=== PATIENT | female | born 1940 | race Caucasian/White ===

== ENCOUNTER 2016-07-05 09:10 | Inpatient (IN) | payer OTHER ==
[~2016-07-05] VITALS: Ht 165.1 cm; Wt 69.0 kg
[~2016-07-05 09:10] MED LIST: ALD25 PO; APAP/HYDROCODON1 T13 PO; ASPIR-LOW81 M1 PO; COL0.6 PO; COL250 PO; D3 VITAMIN400 IU/ML PO; EXELON PATCH TD; FER300 PO; L40 PO; NAMENDA XR7 MG PO; PHENOBARBITAL15 MG PO; SYN25 PO; TYLENOL325 MG PO; VITC PO; ZYL100 PO; [UNRECOGNIZED DRUG - CODE] OU
--- NOTE | 2016-07-05 09:31 | NUR ---
PT IS A 75 YEAR OLD FEMALE, FROM [facility]IA [facility], WITH C/O ALOC. PER MEDIC, PT LAST SEEN AT 0645 AND WAS DESCRIBED ACTING LETHARGIC MORE THAN USUAL. PT HAS HX OF ADVANCED STAGE ALZHEIMERS, AND IS BASELINE SCREAMING AND ONLY REACTIVE TO NAME, NORMALLY CONFUSED TO DATE, TIME, AND PURPOSE. SKIN IS WARM, DRY AND INTACT. PER MEDIC, STAFF AT [facility] MOVED PT CLOSER TO NURSES STATION TO MONITOR PT, AND FINALLY CALLED 911 DUE TO PT APPEARING WORSE. PT NON REACTIVE TO VERBAL STIMULUS OR PAINFUL STIMULUS. PT PUPIL REACTION IS SLUGGISH AT 2MM BILATERALLY. PT BREATHING IS SHALLOW.
[2016-07-05] MEDS ORDERED: LASIX40 MG PO (09:44)
[2016-07-05] MEDS ORDERED: ALDACTONE25 MG PO (09:44)
[2016-07-05] MEDS ORDERED: COLCHICINE0.6 M1 PO (09:45)
[2016-07-05] MEDS ORDERED: MASON NATURAL1000 IU PO (09:45)
[2016-07-05] MEDS ORDERED: ALLOPURINOL100 MG PO (09:45)
[2016-07-05] MEDS ORDERED: ASPIR 8181 MG PO (09:46)
[2016-07-05] MEDS ORDERED: SYNTHROID25 MCG PO (09:46)
[2016-07-05] MEDS ORDERED: VITC PO (09:46)
[2016-07-05] MEDS ORDERED: SILACE60 MG/15 M PO (09:46)
[2016-07-05] MEDS ORDERED: EXELON4.6 MG/21 TOP (09:47)
[2016-07-05] MEDS ORDERED: BETIMOL5 M1 OD (09:48)
[2016-07-05] MEDS ORDERED: NAMENDA10 M2 PO (09:48)
[2016-07-05] MEDS ORDERED: TRAVATAN Z5 ML OU (09:48)
[2016-07-05] MEDS ORDERED: TYLENOL325 M1 PO (09:49)
[2016-07-05] MEDS ORDERED: LORAZEPAM0.5 MG PO (09:49)
[2016-07-05] MEDS ORDERED: LACTULOSE10 GM/152 PO (09:50)
[2016-07-05] MEDS ORDERED: NORCO1 TA1 PO (09:51)
[2016-07-05] MEDS ORDERED: VOLTAREN100 GM TP (09:51)
[2016-07-05] MEDS ORDERED: MOM PO (09:52)
--- NOTE | 2016-07-05 10:09 | NUR ---
CHEST XRAY AT BED SIDE
--- NOTE | 2016-07-05 10:24 | NUR ---
ADMINISTERED NARCAN 0.4MG/ML IVP IN RIGHT HAND. NO RESPONSE.
--- NOTE | 2016-07-05 10:25 | NUR ---
PT TAKEN TO CT VIA RJAMES.
[2016-07-05 10:34] LABS: UA SPECIFIC GRAVITY 1.025 (1.005-1.035); microscopic required? YES; urine erythrocyte TRACE (NEGATIVE)
--- NOTE | 2016-07-05 10:39 | NUR ---
PT BACK FORM CT VIA GURNEY, WITHOUT INCIDENCE.
[2016-07-05 10:43] LABS: AMPHETAMINE QUAL UR NONE DETECTED (NEG <=1000)
[2016-07-05 10:43] LABS: ALBUMIN 3.9 g/dL (3.4-5.0); ALKALINE PHOSPHATASE 138 U/L (46-116); ALT/SGPT 60 U/L (14-59); AST/SGOT 46 U/L (15-37); CALCIUM 9.3 mg/dL (8.5-10.1); CARBON DIOXIDE 25.4 mmol/L (21-32); CHLORIDE SERUM 103 mmol/L (98-107); CREATININE SERUM 1.2 mg/dL (0.6-1.0); GLUCOSE SERUM 141 mg/dL (74-106); SODIUM SERUM 139 mmol/L (136-145); TOTAL PROTEIN, SERUM 6.7 g/dL (6.4-8.2)
[2016-07-05 10:44] LABS: PLATELET COUNT 241 x10^3mcL (130-400); RED CELL DISTRIBUTION WIDTH 13.8 % (11.5-14.5)
[2016-07-05 10:56] LABS: POTASSIUM SERUM 2.9 mmol/L (3.5-5.1)
[2016-07-05 11:33] LABS: BAND NEUTROPHIL 10 % (0-10); BASOPHIL 0 % (0-2); MONOCYTE 3 % (0-7); SEGMENTED NEUTROPHILS 85 % (37-75)
[2016-07-05 11:34] LABS: PLATELET MORPHOLOGY PLATELETS NORMAL; rbc morphology (normal/abnorm) NORMAL (NORMAL)
--- NOTE | 2016-07-05 11:57 | NUR ---
REPORT CALLED AMOS MATTSON, SHE WILL ASSUME CARE PRIMARY RN PSOT TRANSFER.
[2016-07-05 12:08] LABS: MAGNESIUM 2.1 mg/dL (1.8-2.4); PHOSPHOROUS 3.2 mg/dL (2.5-4.9)
[2016-07-05 12:10] LABS: CHOLESTEROL/HDL RATIO 5.8; T3 TOTAL 0.72 ng/mL
--- NOTE | 2016-07-05 12:10 | NUR ---
RECEIVED PT FROM ER. PT IS NOT RESPONDING BUT EYES ARE OPEN AND BREATHING. 100% IN NON REBREATHER MASK. FAMILY AT BEDSIDE. PT IS DNR. CAME AND SAW THE PT AND SPOKE WITH FAMILY. WILL CONTINUE TO MONITOR.
[2016-07-05 12:18] LABS: FREE T4 1.42 ng/dL (0.76-1.46)
[2016-07-05 13:23] VITALS: BP 134/83
--- NOTE | 2016-07-05 13:40 | NUR ---
REC'D RESTING IN BED, FAMILY AT THE BEDSIDE. PT IS AWAKE, EYES OPEN, DOES NOT FOLLOW COMMANDS. NOTED F/C DRAINING TO GRAVITY. NOTED IV ON RH AND RFA WNL. REC'D WITH POTASSIUM INFUSING. PT TOLERATING WELL. NO DISTRESS NOTED. NO FACIAL GRIMACING OR MOANING NOTED. PT IS ON AIR MATTRESS. PT IS ON FACE MASK AT 10L, NO SOB NOTED. PLACED CALL LIGHT WITHIN REACH, PT UNABLE TO FOLLOW DIRECTIONS. PROVIDED REPORT TO TWILA TRINIDAD FOR CONTINUITY OF CARE.
--- NOTE | 2016-07-05 17:40 | NUR ---
RT SAID PT IS SATTING 100% IN NON REBREATHER AND ALSO IN RA AND SHE DOESNOT HAVE ANY SECRETIONS FOR SUCTION. RT PUT PT IN O2 3L VIA N/C AND SATTING 99%. WILL MONITOR.
[2016-07-05 18:06] VITALS: BP 123/79
[2016-07-05 18:15] VITALS: BP 123/79
--- NOTE | 2016-07-05 19:08 | NUR ---
PT IS STILL NON RESPONSIVE BUT STABLE. NO SIGNS OF PAIN OR DISCOMFORT. PT IS ON AIR MATTRESS. GAVE REPORT TO NEXT SHIFT NURSE.
--- NOTE | 2016-07-05 19:40 | NUR ---
RECEIVED PT IN BED AND APPEARS TO BE SLEEPING. PT IS NONRESPONSIVE TO VERBAL AND TACTILE STIMULI. LUNG SOUNDS W/ FINE CRACKLES. ON O2 AT 3 L VIA N/C. RESPIRATION IS EVEN AND NON-LABORED. BOWEL SOUNDS HYPOACTIVE. W/ RIDDLE CATH DRAINING JOSE ANTONIO URINE. IVF NS INFUSING VIA RTFA. W/ HL TO RT HAND. CALL LIGHTW/IN REACH. BED ALARM ACTIVATED.
[2016-07-05 20:42] VITALS: BP 118/71
[2016-07-05 21:11] LABS: CALCIUM 8.7 mg/dL (8.5-10.1); CARBON DIOXIDE 18.5 mmol/L (21-32); CHLORIDE SERUM 105 mmol/L (98-107); CREATININE SERUM 1.1 mg/dL (0.6-1.0); GLUCOSE SERUM 156 mg/dL (74-106); SODIUM SERUM 138 mmol/L (136-145)
[2016-07-05 21:13] LABS: POTASSIUM SERUM 5.8 mmol/L (3.5-5.1)
--- NOTE | 2016-07-05 21:41 | NUR ---
INFORMED DR. WEN REGARDING K=5.8 TROP=2.054. ALSO INFORMED THAT PT IS NON-RESPONSIVE AND UNABLE TO TAKE PO MEDS.
--- NOTE | 2016-07-05 22:32 | NUR ---
PT STILL UNRESPONSIVE. UNABLE TO ADMINISTER KAYEXALATE PO AT THIS TIME. DR. WEN AWARE.
--- NOTE | 2016-07-06 | NUR ---
PT REMAINS UNRESPONSIVE. BREATHING UNLABORED.
[2016-07-06 03:32] LABS: ALBUMIN 3.4 g/dL (3.4-5.0); CALCIUM 8.8 mg/dL (8.5-10.1); CARBON DIOXIDE 20.3 mmol/L (21-32); CHLORIDE SERUM 103 mmol/L (98-107); CREATININE SERUM 1.4 mg/dL (0.6-1.0); GLUCOSE SERUM 172 mg/dL (74-106); MAGNESIUM 2.2 mg/dL (1.8-2.4); PHOSPHOROUS 3.6 mg/dL (2.5-4.9); SODIUM SERUM 136 mmol/L (136-145)
[2016-07-06 03:55] LABS: BASOPHIL % 0.1 % (0-2); PLATELET COUNT 227 x10^3mcL (130-400); RED CELL DISTRIBUTION WIDTH 13.4 % (11.5-14.5)
--- NOTE | 2016-07-06 04:24 | NUR ---
INFORMED DR. WEN REGARDING TROP=2.780.
--- NOTE | 2016-07-06 05:07 | NUR ---
PT REMAINS UNRESPONSIVE. ON O2 AT 3L VIA N/C. BREATHING IS EVEN AND UNLABORED. PT REPOSITIONED PER PROTOCOL. SHE HAD NO BM THIS SHIFT. RIDDLE CATH INTACT AND PATEMT. IVF NS AT 90 CC/HR INFUSING VIA RTFA.
[2016-07-06 06:08] VITALS: BP 125/88
--- NOTE | 2016-07-06 07:06 | NUR ---
TELE. MONITOR DISCONTINUED ORDERED.
--- NOTE | 2016-07-06 08:00 | NUR ---
SON AT BEDSIDE AND PATIENT IS VERY LETHAGIC AND UNABLE TO AROUSE TO GIVE MEDIADTIONS. PATIENT HAS BEEN WITH RALES YESTERDAY THAT WERE MORE COARSE AND NOW FINE RALES HEARD. SHE IS NO LONGER ON THE NON REBREATHER AND TOLERATED THE NASAL CANNULA. PATIENT HAS HYPOACTIVE BOWEL SOUNDS AND HAS NOT BEEN EATTING OR TAKING HER MEDICATION. RIDDLE TO GRAVITY AND URINE IS MEDIUM DARK JOSE ANTONIO. PATIENT HAS NO INDICATION OF PAIN AT THIS TIME. HX OF HTN, ALZHEIMER, DEMENTIA , PERIPHERAL EDEMA AND GLAUCOME HYPOTHYROISIM. GOUT, MACULAR DEGERNATUION AND RIGHT HIS SURGEY. PATIENTH HAS BEEN RECEIING ROCEPHIN AND SOLUMEDREOL AND BOTH HAS NO SIGNS OF RACTOIN. PATIENT HAS BEEN ON RT PROTOCAL AND TOLERATE WELL.
--- NOTE | 2016-07-06 08:30 | NUR ---
SEEN BY THE INTERNS AND DR REYEZ AND PLAN OF CARE DISCUSSED. PATIENT IS FOR A NUTRITIONAL CONSULTATION AND SONE AT BEDSIDE AND SUPPORTIVE WITH CARE.
[2016-07-06 10:43] VITALS: BP 142/85
--- NOTE | 2016-07-06 13:03 | NUR ---
BLOOD GAS DRAWNA ND RESULTS PENDING AT THIS TIME. FAMILY AT BEDSIDE AND SUPPORTIVE WITH CARE.
--- NOTE | 2016-07-06 15:41 | NUR ---
FAMILY AT BEDSIDE. PATIENT IS MOVING HER FEET AND OCCASIONALLY SHE IS MAKING A GROAN OR SIGH HERE AND THERE. SHE DOES NOT APPEAR IN ANY ACUTE DISTRESS EITHER RESPIRATORY CHILDERS OR PAIN. WILL CONTINUE TO MONITOR INDICATED.
--- NOTE | 2016-07-06 17:17 | NUR ---
Initial Nutrition Assessment-consult: comatose Dx: ALOC PMHx: Alzheimers dementia, HTN, peripheral edema, glaucoma, hypothyroid, gout PSHx: macular degeneration, right hip surgery Labs: BG 172, BUN 25, Cr 1.4, WBC 15.4, HCT 47, Meds: Lipitor, solu-medrol, Colace, Diet: none PO Intake: last meal was dinner on 07/04 INSPECTOR TECHNICIAN Ht: 65in Wt: 152# BMI: 25.3 (overweight) IBW: 125# %IBW: 122% UBW: unknown Age: 75yo F Food Allergies: none, intolerant to large amounts of lactose Skin: left facial lesion Idris Edema: chronic peripheral edema GI: Last BM unknown Pt comatose upon visit, qscdoifv-re-ntv at bedside was able to provide information. Lchakffz-vh-fbi reports noticeable weight loss in the last few weeks, total pounds lost is unknown. Patient is bed bound and requires assistance with meals but was refusing meals INSPECTOR TECHNICIAN. Per Liienodu-yl-qun, patient would close her mouth and shake her head "no" when they would attempt to feed. On Sunday, INSPECTOR TECHNICIAN, the mutugghv-ek-jyv was able to feed patient 1 cheese enchilada and a half cup of rice, but has not eaten since. Pt takes a vitamin D supplement at home. Pt does not qualify for education due to comatose state and ALOC Alzheimer's dementia. Estimated Nutritional Needs Based on actual body weight 69.1 kg Energy: 5525-6329 kcal/d (25-30 kcal/kg) Protein: 55-70 g/d (0.8-1 g/kg) Fluid: 1382 ml/d (20 ml/kg) or per doctor Nutrition Diagnosis Inadequate protein-energy intake related to patient unable to ingest PO diet as evidenced by patient is comatose and no PO intake x 3 days. Intervention 1. If diet does not advance by day 4 of admission, consider initiating NG TF Nutren 2.0 at 15mL/hour and advance as tolerated by 10mL q 4 hours to goal rate of 40mL/hour. Provides 100% of estimated caloric needs and 117% of estimated protein needs) Monitor/Evaluate Goal: NPO < 5 days Monitor: tolerance to TF, Labs, GI function F/U in 2-3 days as HIGH risk
--- NOTE | 2016-07-06 17:18 | NUR ---
Nutrition Diagnosis: Inadequate protein-energy intake related to patient unable to ingest PO diet as evidenced by patient is comatose and no PO intake x 3 days. Recommendation: If diet does not advance by day 4 of admission, consider initiating NG TF Nutren 2.0 at 15mL/hour and advance as tolerated by 10mL q 4 hours to goal rate of 40mL/hour. Provides 100% of estimated caloric needs and 117% of estimated protein needs)
--- NOTE | 2016-07-06 17:50 | NUR ---
PATIENT STILL LETHARGIC AND ONLY RESPONSIVE TO TACTILE OR PAINFUL STIMULI. PATIENT HAS BEEN BREATHING REGULAR AND UNLABORED AT THIS TIME. NO ADVERSE REACTION FROM THE ANTIBOITIC NOTED.
[2016-07-06 17:55] VITALS: BP 126/90
--- NOTE | 2016-07-06 19:25 | NUR ---
RECEIVED PT IN BED UNRESPONSIVE TO VERBAL STIMULI. PT W/ SOME MOVEMENTS TO BUE AND BLE WHEN TOUCHED. LUNG SOUNDS DIMINISHED. RESP. EVEN AND UNLABORED. PT BREATHING BETTER W/ HOB ELEVATED. ON O2 AT 3L VIA N/C. BOWEL SOUNDS HYPOACTIVE. W/ RIDDLE CATH DRAINING JOSE ANTONIO URINE. DR. ENGLISH IN TO CHECK ON PT AT THIS TIME. PT W IVF OF NS AT 90 CC/GR VIA RTFA. W/ HL TO RT HAND. CALL LIGHT W/IN REACH. BED IN LOWEST POSITION.
[2016-07-06 21:51] VITALS: BP 132/73
--- NOTE | 2016-07-06 23:05 | NUR ---
PT GIVEN SPONGE BATH. KEPT HER WARM AND COMFORTABLE.PT REMAINS UNRESPONSIVE.
--- NOTE | 2016-07-07 04:45 | NUR ---
PT'S BREATHING SLIGHTLY LABORED. ON O2 AT 3L N/C.
--- NOTE | 2016-07-07 05:00 | NUR ---
PT APPEARS CALM AND BREATHING EVEN AND NON-LABORED AT THIS TIME. DR. WEN IN TO CHECK ON PT.
--- NOTE | 2016-07-07 05:15 | NUR ---
PT REMAINS UNRESPONSIVE. W/ MOVEMENTS TO BUE AND BLE AT TIMES ON TACTILE AND PAINFUL STIMULI. PT SATTING 96 % ON O2 AT 3L VIA N/C. NO BM NOTED. RIDDLE CATH INTACT AND W/ 700 CC OUTPUT THIS SHIFT (HAD LASIX IV). IVF NS AT 80 CC/HR INFUSING WELL VIA RTFA.
[2016-07-07 06:27] VITALS: BP 136/94
[2016-07-07 06:35] LABS: PLATELET COUNT 198 x10^3mcL (130-400); RED CELL DISTRIBUTION WIDTH 13.9 % (11.5-14.5)
[2016-07-07 06:56] LABS: CALCIUM 8.5 mg/dL (8.5-10.1); CHLORIDE SERUM 111 mmol/L (98-107); CREATININE SERUM 1.4 mg/dL (0.6-1.0); GLUCOSE SERUM 198 mg/dL (74-106); SODIUM SERUM 144 mmol/L (136-145)
[2016-07-07 07:03] LABS: ALBUMIN 2.9 g/dL (3.4-5.0)
--- NOTE | 2016-07-07 07:20 | NUR ---
RECEIVED Pt. EYES CLOSED RESPIRATIONS EVEN AND UNLABORED AT THIS TIME O2 3L/MIN NC. Pt. NONRESPONSIVE TO VERBAL AND TACTILE STIMULI. NO FACIAL GRIMACING/MOANING NOTED. IVF D5NS RUNNING TO IV AT RFA PATENT AND INTACT. IV RIGHT HAND SALINE LOCKED. RIDDLE CATHETER IN PLACE. CLEAR, YELLOW URINE NOTED. AIR MATTRESS IN PLACE. SWELLING NOTED BLE. BED LOW/LOCKED. CALL LIGHT IN REACH.
[2016-07-07 09:12] VITALS: BP 141/76
[2016-07-07 09:50] VITALS: BP 95/44
--- NOTE | 2016-07-07 10:00 | NUR ---
SPOKE WITH DR. ENGLISH VERIFYING NG TUBE PLACEMENT PER MD HOLD NG TUBE INSERTION AT THIS TIME.
--- NOTE | 2016-07-07 10:25 | NUR ---
Pt. REMAINS UNRESPONSIVE. RESPIRATIONS EVEN AND UNLABORED O2 3L/MIN NC. IV AT RFA SALINE LOCKED. NO DISTRESS AT THIS TIME. Pt. LEFT FOR CT.
[2016-07-07 10:29] LABS: BAND NEUTROPHIL 3 % (0-10); BASOPHIL 0 % (0-2); MONOCYTE 4 % (0-7); SEGMENTED NEUTROPHILS 89 % (37-75)
--- NOTE | 2016-07-07 11:00 | NUR ---
Pt. RETURNED FROM CT SCAN, Pt. REMAINS UNRESPONSIVE, EPISODES OF LABORED BREATHING NOTED. Pt. REPOSITIONED AND RESPIRATIONS EVEN AND UNLABORED O2 3L/MIN NC. HOB ELEVATED. RESUMED IVF D5NS TO IV AT LEFT HAND PATENT AND INTACT. DR. ENGLISH AT BEDSIDE AWARE OF MAP AT 63. WILL CONTINUE TO MONITOR. CALL LIGHT IN REACH. SON AT BEDSIDE.
--- NOTE | 2016-07-07 16:19 | NUR ---
Follow-up Nutrition Assessment Dx: Metabolic Encephalopathy 2/2 Acute Alzheimer's dementia exacerbation w/ underlying UTI PMHx: Alzheimers dementia, HTN, peripheral edema, glaucoma, hypothyroid, gout Labs: BG 198H, BUN 29H, Cr 1.4H, Alb 2.9L, TROP 2.780H, WBC 17.4H Meds: Lipitor, zofran, morphine, lactinex, Colace, D50, heparin, aldactone, lasix, synthroid, synthroid, milk of magnesia, lactulose, vitamin C 500mg BID, vitamin D Current TF Order: Nutren 2.0 via NGT at goal rate of 40ml/pk=[id number], 81g protein, 664ml free H2O. Free H2O Flush: 100ml q4hr (07/07) TF Intakes: none recorded (07/07) Residuals: none recorded (07/07) I/O's: 2090/1100 (+990ml) Wt: 152lbs, 69kg (07/05)- no new wt. BMI: 25.3 (overweight) Skin: intact- no pressure injuries noted by RN. Idris: 10 Edema: +2 to BLE GI: hypoactive bowel sounds, abd soft/round. Last BM: unknown (07/05) Problem with: N: None. V: None. D: none. C: None. As per doctor's progress note 07/06- Patient remains comatose, however has improved since the past 24 hours to a GCS 8 (tactile stimulus, nonverbal, localizes to pain). Patient will continued to be monitored over night for any acute changes and reevaluated in the morning. Meanwhile, patient's family will contact [facility] for a list of medications given to patient on the day of onset of symptoms . Pt admitted w/ Metabolic Encephalopathy 2/2 Acute Alzheimer's dementia exacerbation w/ underlying UTI. Pt seen at bedside w/ family x2 present, pt was still in a comatose state in a slouched over position, did not hear bowel sounds or laboured breathing, no NGT inserted, no TF hanging, spoke to family, reports the doctor is going to think about placing the NGT for TF, family was a bit aprehensive in regards to the NGT being placed for TF. The RD spoke to Dr. Mckeon in regards to TF initiation, he asked the RD if the addition of nutrition will help the pt' s body fight off the infection to which the RD stated yes; however, the pt must be monitored closely for signs of aspiration and ensure the pt's HOB is elevated >45 degrees, Dr. Mckeon agreed and will plan for NGT to be placed later today for TF initiation. Estimated Nutritional Needs Based on CBW 152 lb, 69kg Energy: 4253-2191 kcal/day (25-30 kcal/kg for Geriatric Maintenance) Protein: 69-83 g/day (1-1.2 g/kg for Geriatric Maintenance) Fluid: 6739-3369 ml/day (25-30 ml/kg for Geriatric Maintenance) or per MD Nutrition Diagnosis 1. Inadequate protein-energy intake related to patient unable to ingest PO diet as evidenced by patient is comatose and no PO intake x 3 days-*Continues Intervention 1. Change TF to Isosource 1.5 via medically feasible route and initiate at 30ml/hr and advance by 10ml q4hr to goal rate of 50ml/hr to provide 1800kcals, 82g protein, 917ml free H2O. Free H2O Flush of 135ml q4hr (total free H2O 1727ml) or per MD. 2. Ensure the HOB is elevated > 45 degrees to prevent aspiration 3. Adjust Insulin and BM regimen PRN (Note Bmg/dL) Monitor/Evaluate Previous Goal: NPO < 5 days- Met Goal: TF meeting >/=50% of needs w/ tolerance Monitor: TF intakes/tolerance, labs, skin integrity, GI function, wt F/U in 2-3 days as HIGH risk (07/09-07/10)
--- NOTE | 2016-07-07 16:32 | NUR ---
1. Change TF to Isosource 1.5 via medically feasible route and initiate at 30ml/hr and advance by 10ml q4hr to goal rate of 50ml/hr to provide 1800kcals, 82g protein, 917ml free H2O. Free H2O Flush of 135ml q4hr (total free H2O 1727ml) or per MD. 2. Ensure the HOB is elevated > 45 degrees to prevent aspiration 3. Adjust Insulin and BM regimen PRN (Note Bmg/dL)
--- NOTE | 2016-07-07 16:34 | NUR ---
PER R.T. PT IN POSITION ON UPRIGHT AND O2SAT AT 100% ON 3L/NC BUT HAD NOTED ABDL/LABORED BREATHING. CALLED AND SPOKE TO (RESIDENT ASSIGNED TO THIS PT)MADE AWARE OF ABOVE. WENT TO SEE PT AND FAMILY WERE ALL AT THE BEDSIDE. RAMONA MATTSON ASSIGNED TO THIS PT AT THE BEDSIDE. WILL CONT TO MONITOR.
[2016-07-07 16:48] VITALS: BP 144/83
--- NOTE | 2016-07-07 18:54 | NUR ---
Pt. REMAINS UNRESPONSIVE, EPISODES OF LABORED BREATHING NOTED RELIEVED BY POSITIONING. HOB KEPT ELEVATED TO FACILITATE BREATHING. RESPIRATIONS EVEN AND UNLABORED AT THIS TIME. NO FACIAL GRIMACING/MOANING/SIGNS OF PAIN OR DISCOMFORT NOTED. NO DISTRESS AT THIS TIME. D5NS RUNNING TO IV AT RIGHT HAND AND IS PATENT AND INTACT. KEPT CLEAN AND DRY. RIDDLE CATHETER IN PLACE DRAINING YELLOW URINE NOTED. AIR MATTRESS IN PLACE. BED LOW/LOCKED. CALL LIGHT IN REACH, FAMILY AT BEDSIDE.
--- NOTE | 2016-07-07 19:10 | NUR ---
DR. ENGLISH NOTIFIED URINE OUTPUT FROM RIDDLE CATHETER 150 ML DURING SHIFT.
--- NOTE | 2016-07-07 19:45 | NUR ---
RECEIVED PT FROM AM NURSE. PT IS UNRESPONSIVE. PT HOB IS ELEVATED. NO SIGNIFICANT CHANGES. PULSES ARE EVEN AND PALPABLE. BREATH SOUNDS ARE EVEN AND UNLABORED. LUNG SOUNDS ARE CLEAR. ABD IS SOFT AND ROUND. SCD ARE ON. IV INFUSING WELL. BED IN LOWEST POSITION. CALL LIGHT WITHIN REACH. WILL CONTINUE TO MONITOR.
[2016-07-07 21:57] VITALS: BP 138/88
--- NOTE | 2016-07-07 21:59 | NUR ---
DR. WEN MADE AWARE PT ON CPAP ALREADY AT THIS TIME.WILL INSERT NGT ORDERED EARLIER IN AM AND AGREEABLE.
--- NOTE | 2016-07-08 05:20 | NUR ---
INSERTION OF MONTSERRATIAN 14 GAUGE NGTUBE TO RIGHT NARES AND TOLERATED WELL. O2 SAT 96-98% WITH O2 AT 4L. GOOD ORAL CARE PROVIDED. WILL ORDER KUB.
[2016-07-08 06:10] LABS: BASOPHIL % 0.2 % (0-2); PLATELET COUNT 168 x10^3mcL (130-400); RED CELL DISTRIBUTION WIDTH 13.9 % (11.5-14.5)
[2016-07-08 06:18] VITALS: BP 150/82
[2016-07-08 06:46] LABS: CALCIUM 8.5 mg/dL (8.5-10.1); CARBON DIOXIDE 21.1 mmol/L (21-32); CHLORIDE SERUM 117 mmol/L (98-107); CREATININE SERUM 1.1 mg/dL (0.6-1.0); GLUCOSE SERUM 133 mg/dL (74-106); POTASSIUM SERUM 4.2 mmol/L (3.5-5.1); SODIUM SERUM 151 mmol/L (136-145)
--- NOTE | 2016-07-08 06:47 | NUR ---
MADE ROUNDS. PT IS OCCASIONALLY OPENING HER EYES AND RESPONDING TO TACTIC STIMULI. HOB IS ELEVATED. UNABLE TO ASSESS PAIN. IV INFUSING WELL. BED IN LOWEST POSITION. WILL CONTINUE TO MONITOR AND ENDORSE ALL CARE TO ONCOMING NURSE.
--- NOTE | 2016-07-08 08:00 | NUR ---
PT IS NON RESPONISIVE TO VERBAL STIMULI, DOES NOT FOLLOW COMMANDS AND, FLEXES TO PAINFUL STIMULI, GCS OF 4. NGT TO RIGHT NARE. MEDSURG PT. PULSES WEAK TO ALL EXTREMITIES, EDEMA AND WCCHYMOSIS TO BUE AND BLE. SCDS IN PLACE. HOB ELEVATED PT ON 4L O2 VIA NC. BOWEL SOUNDS HYPO ACTIVE. RIDDLE IN PLACE. OT ON AIR MATRESS. NO NONVERBAL INDICATORS OF PAIN AT THIS TIMES. IV THE THE RFA AND RIGHT HAND. CALL LIGHT IN REACH BED IN LOW POSITION.
--- NOTE | 2016-07-08 09:12 | NUR ---
PT BREATHING LABORED RR 22, ELEVATED HOB AND READJUSTED NC WILL REASSESS.
--- NOTE | 2016-07-08 10:01 | NUR ---
RR DECREASED TO 18, PT BREATHING LESS LABORED WILL CONTINUE TO MONITOR.
[2016-07-08 10:02] VITALS: BP 145/87
--- NOTE | 2016-07-08 11:21 | NUR ---
DR WALL IN TO SEE PT AND FAMILY, UPDATED FAMILY ON POC.
--- NOTE | 2016-07-08 12:00 | NUR ---
DR BURNS IN TO SEE PT AND FAMILY DISCUSSED TX OPTIONS FRO PT, DICUSSED PALLIATIVE CARE.
--- NOTE | 2016-07-08 12:30 | NUR ---
DR WALL IN TO SEE PT AND FAMILY AND DISCUSS INTO FURTHER DETAIL TX OPTIONS FOR PT, FAMILY STATED THAT IT WAS THE PTS WISHES TO HAVE COMFORT MEASURES ONLY, DR WALL ASKED HOW THE FAMILY FELT ABOUT A MORPHINE DRIP AND THE FAMILY STATED THAT'S WHAT THE PT WOULD WANT.
[2016-07-08 14:35] VITALS: BP 135/85
--- NOTE | 2016-07-08 14:45 | NUR ---
PATIENT PLACED ON TELE, MONITOR NUMBER 8, SR AT THIS TIME WILL CONTINUE TO MONITOR.
--- NOTE | 2016-07-08 15:09 | NUR ---
MORPHINE DRIP INITIATED, INFUSION RUNNING AT 2MG/HR, WILL CONTINUE TO MONITOR CLOSELY.
--- NOTE | 2016-07-08 16:05 | NUR ---
MORPHINE INFUSION INCREASED BY 2MG/HR DUR TO RR OF 26, NOW INFUSING AT 4MG/HR, WILL CONTINUE TO MONITOR BRANDON. HR 89 VS STABLE.
[2016-07-08 18:08] VITALS: BP 80/52
--- NOTE | 2016-07-08 18:10 | NUR ---
ORDERS FROM DR POLLACK RECIEVED, NGT DC'D TIP INTACT, SCDS DC'D, AND O2 DECREASED TO 2L VIA NC. PTS RR 24 MORPHINE DRIP INREASED BY 2MG/HR NOW RUNNING AT 6MG/HR, WILL CONTINUE TO MONITOR BRANDON.
--- NOTE | 2016-07-08 18:35 | NUR ---
PT RESTING IN BED RESPIRATIONS LABORED BUT WITHIN PARAMETERS, WILL CONTINUE TO MONITOR. FAMILY AT BEDSIDE.
--- NOTE | 2016-07-08 19:15 | NUR ---
RECEIVED PT FROM AM NURSE. PT IS UNRESPONSIVE AND DOES NOT RESPOND TO VERBAL STIMULI. PT IS LAYING IN BED WITH THE HOB ELEVATED. DOES NOT RESPOND TO FLEXES OF PAINFUL STIMULI. TELE # 8 SR 86 DEPRESS T WAVE. EDEMA AND ECCHYMOSIS NOTED. 2L O2 VIA NC. BOWEL SOUNDS ARE HYPOACTIVE. RIDDLE CATHETER IN PLACE. PT IS ON AIR MATTRESS. FAMILY IS AT BEDSIDE. IV INTACT AND INFUSING WELL. BED IN LOWEST POSITION AND WILL CONTINUE TO MONITOR.
--- NOTE | 2016-07-08 19:26 | NUR ---
CARE ENDORCED TO LEAN MANUFACTURING COORDINATOR, PT STABLE AT THIS TIME. MORPHINE DRIP PROTOCOL GIVEN TO RN.
--- NOTE | 2016-07-08 19:50 | NUR ---
PT RR 22, HR 86. MORPHINE WAS SET AT 8MG/HR. WILL CONTINUE TO MONITOR.
[2016-07-08 21:29] VITALS: BP 68/42
--- NOTE | 2016-07-09 | NUR ---
ASKED PERMISSION FROM FAMILY TO TURN AND REPOSITIONED PATIENT AND THEY AGREED PATIENT TURNED TO HER RT SIDE WITH HOB ON A UPRIGHT POSITION. RR=16-18BPM, HR=79BPM, CALM NO MOANING NOR GROANING DURING CARE,MAINTAINED O2 AT 2LNC MORPHINE GTT AT 8MG/HR.ALWAYS INFORMING FAMILY ABOUT PROCEDURE BEING DONE TO PATIENT. WILL CONTINUE TO MONITOR.
--- NOTE | 2016-07-09 00:42 | NUR ---
MADE ROUNDS. PT BP 57/34, T 99.5, HR 87, 02 83, RR 24.
[2016-07-09 00:51] VITALS: BP 57/34
[2016-07-09 05:30] VITALS: BP 139/70
--- NOTE | 2016-07-09 05:49 | NUR ---
MADE ROUNDS. PT BREATHING IS SHALLOW. BP 53/27, T 99.0, RR 16, P 81. WILL CONTINUE TO MONITOR.
[2016-07-09 06:57] VITALS: BP 53/27
--- NOTE | 2016-07-09 08:13 | NUR ---
GCS OF 6, PT DOES NOT RESPOND TO VERBAL STIMULUS. TELE 8 SR. PULSES WEAK TO EXTREMITIES, EDEMA TO BLE/BUE. LUNGS CONGESTED. BOWEL TONES HYPOACTIVE, PT ONT EATING. AIR MATRESS IN PLACE. IV THE THE RW, AND RFA INTACT AND PATENT. PT APPEARS TO BE RESTING COMFORTABLY, WILL CONTINUE TO MONITOR CL[place].
--- NOTE | 2016-07-09 09:30 | NUR ---
PT ASSESSED FOR BM NO NEED FOR CHANGE AT THIS TIME WILL CONTINUE TO MONITOR.
--- NOTE | 2016-07-09 11:12 | NUR ---
PT REPOSITIONED FOR COMFORT, TEETH BRISHED AND HAIR COMBED. NO SIGNS OF DISTRESS AT THIS TIME VS WNL. FAMILY AT BEDSIDE WILL CONTINUE TO MONITOR.
--- NOTE | 2016-07-09 12:47 | NUR ---
PT RESTING IN BED BATH GIVEN, EVEN UNLABORED RESPIRATIONS, NO NO VERBAL INDICATORS OF PAIN NOTED. FAMILY AT BEDSIDE. NO SIGNS OF DISTRESS NOTED.
--- NOTE | 2016-07-09 13:34 | NUR ---
MORPHINE BAG NOT READY AT THIS TIME. PHARMACY CALLED. WILL HANG SOON IT IS AVAILABLE.
[2016-07-09 14:35] VITALS: BP 55/29
--- NOTE | 2016-07-09 16:28 | NUR ---
PTS PULSE RATE IS 118, PER ORDERS MORPHINE DRIP INCREASED BY 2MG, NOW RUNNING AT 10MG/HR. FAMILY AT BEDSIDE WILL CONTINUE TO MONITOR.
--- NOTE | 2016-07-09 17:09 | NUR ---
HR ABOVE PARAMETERS MORPHINE DRIP INCREASED BY 2MG/HR NOW RUNNING AT 12MG/HR, FAMILY AT BEDSIDE. WILL CONTINUE TO MONITOR.
--- NOTE | 2016-07-09 17:35 | NUR ---
DR WALL IN TO PRONOUNCE PTS TIME OF . 1733. JOSHUA CALLED AND NOTIFIED, [facility] CASE OPENED, AND [facility] [employer] NOTIFIED WILL WAIT FOR FURTHER ORDERS.
--- NOTE | 2016-07-09 18:40 | NUR ---
BODY RELEASED BY CONSTRUCTION JOB TITLESJOSHUA LVN IN TO SEE PTS FAMILY TESTING MANAGER CALLED AND NOTIFIED [employer] OF PTS PASSING, STATED THEY WOULD BE PICKING UP THE BODY IN AN HOUR AND A HALF FROM CALL.
--- NOTE | 2016-07-09 19:15 | NUR ---
MORPHINE DRIP DC'D 25ML WASTED AND VERIFIED WITH 2ND RN, POST MORTUM CARE GIVEN PT PLACED IN BODY BAG, ALL BELONGINGS TAKEN BY PT FAMILY, SEC[facility]ITY CALLED FOR PICKUP. ALL LINES REMOVED FROM PT.
--- NOTE | 2016-07-09 19:52 | NUR ---
PT PICKED UP BY [employer] AND TAKEN DOWN TO MORGUE ALL PAPERWORK WITH SECURITY, PT MARKED AND VERIFIED WITH RN AND SECURITY.
== END 2016-07-09 17:33 | disposition expired | DRG 871 ==
LOC: ED 09:10 → MU 11:14 → DU 11:14 → MU 07-06 07:05 → DU 07-08 22:20
PROVIDERS: Emergency Medicine; Family Medicine; ADMIT Family Medicine
DX: A41.9 Sepsis, unspecified organism (principal); G93.41 Metabolic encephalopathy; J96.01 Acute respiratory failure with hypoxia; J69.0 Pneumonitis due to inhalation of food and vomit; S72.012A Unspecified intracapsular fracture of left femur, initial encounter for closed fracture; N39.0 Urinary tract infection, site not specified; E44.0 Moderate protein-calorie malnutrition; G30.9 Alzheimer's disease, unspecified; R65.20 Severe sepsis without septic shock; F02.80 Dementia in other diseases classified elsewhere, unspecified severity, without behavioral disturbance, psychotic disturbance, mood disturbance, and anxiety; E87.6 Hypokalemia; E03.9 Hypothyroidism, unspecified; E78.2 Mixed hyperlipidemia; M10.9 Gout, unspecified; H40.9 Unspecified glaucoma; R31.9 Hematuria, unspecified; I10 Essential (primary) hypertension; F41.9 Anxiety disorder, unspecified; Z66 Do not resuscitate; Z51.5 Encounter for palliative care; M81.0 Age-related osteoporosis without current pathological fracture; Z74.01 Bed confinement status; Z68.25 Body mass index [BMI] 25.0-25.9, adult; E87.8 Other disorders of electrolyte and fluid balance, not elsewhere classified; X58.XXXA Exposure to other specified factors, initial encounter; Y93.89 Activity, other specified; Y92.89 Other specified places as the place of occurrence of the external cause
CPT/HCPCS: 36600; 80307; 82962; 83880; 84439; J0696; J1644; J1940; J2270; J2310; J2543; J2920; J3480; J7030; J7042; J7070; J7620; Q0092